=== PATIENT | female | born 1990 | race Caucasian/White ===

== ENCOUNTER 2016-05-09 12:27 | Emergency (ER) | payer OTHER ==
[~2016-05-09] VITALS: Ht 170.2 cm; Wt 56.0 kg
[2016-05-09 12:34] VITALS: BP 123/78
== END 2016-05-09 12:43 | disposition home or self-care (01) ==
LOC: ED 12:37
DX: F32.9 Major depressive disorder, single episode, unspecified (principal)
CPT/HCPCS: 99283; 99284

== ENCOUNTER 2016-06-06 | Observation (INO) | payer OTHER ==
[~2016-06-06] VITALS: Ht 170.2 cm; Wt 53.2 kg
[2016-06-06] MEDS ORDERED: ZIPRASIDONE 20 MG INJ IM ONE ×2 (00:22→00:30)
[2016-06-06] MEDS ORDERED: LORazepam 2 MG/ML, 1ML ONE (00:23)
[2016-06-06] MEDS: PLEASE ENTER ALLERGIES MC SCH ×4 (00:30→08:30)
[2016-06-06] MEDS ORDERED: LORazepam 2 MG/ML, 1ML IM ONE (00:30)
[2016-06-06 01:47] LABS: BLOOD UREA NITROGEN 10 mg/dL (7-18)
[2016-06-06 01:53] LABS: ACETAMINOPHEN < 2 mcg/mL (10-30)
[2016-06-06 09:17] LABS: DAU SCREEN DISCLAIMER
[2016-06-06 09:34] LABS: HCG UR OBC PASS
[2016-06-06] MEDS ORDERED: PLEASE ENTER HEIGHT AND WEIGHT MC SCH (10:00)
[2016-06-06] MEDS ORDERED: ESCI10TA PO (11:04)
[2016-06-06] MEDS ORDERED: TRAZ50TA18 PO (11:04)
[2016-06-06 11:16] VITALS: BP 123/90
[2016-06-06] MEDS ORDERED: LORazepam 1MG TABLET PO PRN (11:30)
[2016-06-06] MEDS: ACETAMINOPHEN 325 MG TABLET PO PRN ×2 (11:32→19:50)
[2016-06-06] MEDS ORDERED: TRAZODONE 50MG TABLET PO PRN (12:00)
[2016-06-06 19:38] VITALS: BP 109/70
[2016-06-06] MEDS ORDERED: ESCITALOPRAM OXALATE 10 MG PO SCH (21:00)
[2016-06-06] MEDS: CITALOPRAM 20 MG TABLET PO SCH (21:55)
[2016-06-07 07:46] VITALS: BP 103/53
[2016-06-07] MEDS: CITALOPRAM 20 MG TABLET PO SCH (08:21)
[2016-06-07] MEDS: ACETAMINOPHEN 325 MG TABLET PO PRN (08:25)
[2016-06-07] MEDS ORDERED: AMOXICILLIN/CLAV 500-125MG TABLET PO SCH (16:00)
[2016-06-07] MEDS ORDERED: SULF1TAB24 PO (16:06)
[2016-06-07] MEDS ORDERED: SULFAMETH./TRIMETHOPRIM DS 800MG/160MG TABLET PO SCH (17:00)
[2016-06-08] MEDS ORDERED: BACITRACIN OINT 500U/GM, 15 GM TP SCH (09:00)
== END 2016-06-07 19:12 ==
LOC: ED 00:36 → EDIP 04:15 → 3E 09:44
PROVIDERS: ADMIT Internal Medicine
DX: T14.91 Suicide attempt (principal); S61.512A Laceration without foreign body of left wrist, initial encounter; F10.129 Alcohol abuse with intoxication, unspecified; F32.9 Major depressive disorder, single episode, unspecified; D72.828 Other elevated white blood cell count; X78.8XXA Intentional self-harm by other sharp object, initial encounter; Y92.89 Other specified places as the place of occurrence of the external cause; Y93.89 Activity, other specified; Y99.8 Other external cause status
CPT/HCPCS: 36415; 80048; 80307; 80329; 81025; 82040; 84703; 85025; 96372; 99285; G0378; J2060; J3486; G0480

== ENCOUNTER 2016-08-01 21:54 | Emergency (ER) | payer OTHER ==
[~2016-08-01] VITALS: Ht 170.2 cm; Wt 55.1 kg
[~2016-08-01 21:54] MED LIST: ESCI10TA PO; SULF1TAB24 PO; TRAZ50TA18 PO
[2016-08-01 21:55] VITALS: BP 120/78
== END 2016-08-01 22:39 | disposition home or self-care (01) ==
LOC: ED 22:17
DX: S61.512A Laceration without foreign body of left wrist, initial encounter (principal); X78.9XXA Intentional self-harm by unspecified sharp object, initial encounter; Y93.89 Activity, other specified; Y99.8 Other external cause status; Y92.009 Unspecified place in unspecified non-institutional (private) residence as the place of occurrence of the external cause
CPT/HCPCS: 99282